=== PATIENT | female | born 1965 | race Caucasian/White ===

== ENCOUNTER 2021-07-14 16:58 | Day surgery (SDC) | payer OTHER ==
[2021-07-04 11:17] VITALS: BMI 35.5
[2021-07-14] MEDS: ACETAMINOPHEN 500 MG TABLET (FP) PO SCH ×2 (14:30→21:02)
[~2021-07-14 16:58] MED LIST: ACETAMINOPHEN 1000 MG/100 ML VIAL IVPB ONE; ACETAMINOPHEN INJECTION 100 ML IVPB ONE; BUPIVACAINE HCL 50 ML ONE; BUPIVACAINE HCL/PF 0.5% (5MG/ML) 10 ML VIAL ONE; BUPIVACAINE LIPOSOME/PF (EXPAREL) 266 MG/20 ML VIAL ONE; BUPIVICAINE 0.25%/MORPH PF/KETOROLAC - 51ML DISP.SYRINGE IA ONE; DEXAMETHASONE SOD PHOSPHATE 4 MG/1 ML VIAL ONE; LACTATED RINGERS SOLUTION 1,000 ML IV SCH; MAG HYDROX/AL HYDROX/SIMETH 30 ML UNIT-DOSE CUP PO PRN; MIDAZOLAM HCL 2 MG/2 ML SINGLE DOSE VIAL ONE; ONDANSETRON 4 MG/2 ML VIAL IVPUSH PRN; ONDANSETRON 4 MG/2 ML VIAL ONE; PROPOFOL 20 ML ONE; SODIUM CHLORIDE 0.9% P/F 10 ML VIAL IJ ONE; TRANEXAMIC ACID 1000 MG/10 ML VIAL ONE; VANCOMYCIN 1,000 MG VIAL (RESTRICTED TO ID ONLY) ONE; ceFAZolin SODIUM 1 GM VIAL ONE; oxyCODONE HCL 5 MG TABLET PO PRN
[2021-07-14] MEDS: metFORMIN HCL 500 MG TABLET (FP) PO SCH (18:46)
[2021-07-14] MEDS: oxyCODONE HCL 5 MG TABLET PO PRN ×2 (19:07→22:09)
[2021-07-14] MEDS ORDERED: DEXTROSE 5%-WATER - 50 ML IVPB ONE (20:46)
[2021-07-14] MEDS ORDERED: ceFAZolin SODIUM 1 GM VIAL ONE (20:46)
[2021-07-14] MEDS: CEFAZOLIN 1 GM in DEXTROSE 5%-WATER - 50 ML IVPB SCH (21:02)
[2021-07-14] MEDS: oxyCODONE HCL 10 MG SUSTAINED ACTING TABLET PO SCH (21:03)
[2021-07-14] MEDS: SENNOSIDES/DOCUSATE COMBO (SENNA PLUS) TABLET (UD) PO SCH (21:03)
[2021-07-14] MEDS: INSULIN SLIDING SCALE (NOVOLOG) 1 VIAL SQ SCH (21:04)
[2021-07-14] MEDS ORDERED: LISINOPRIL 5 MG TABLET PO SCH (22:00)
[2021-07-15] MEDS ORDERED: ceFAZolin SODIUM 1 GM VIAL ONE ×2 (02:08→03:41)
[2021-07-15] MEDS ORDERED: DEXTROSE 5%-WATER - 50 ML IVPB ONE ×2 (02:09→03:41)
[2021-07-15] MEDS: ACETAMINOPHEN 500 MG TABLET (FP) PO SCH ×2 (02:15→10:20)
[2021-07-15] MEDS: oxyCODONE HCL 5 MG TABLET PO PRN (03:43)
[2021-07-15] MEDS: CEFAZOLIN 1 GM in DEXTROSE 5%-WATER - 50 ML IVPB SCH (03:45)
[2021-07-15] MEDS: metFORMIN HCL 500 MG TABLET (FP) PO SCH (07:00)
[2021-07-15] MEDS: INSULIN SLIDING SCALE (NOVOLOG) 1 VIAL SQ SCH ×2 (07:01→11:48)
[2021-07-15 09:02] LABS: HEMATOCRIT 35.6 % (32.4-45.2); HEMOGLOBIN 11.6 GM/dl (10.7-15.3); MCH 30.2 pg (25.7-33.7); MCHC 32.6 g/dl (32.0-36.0); MEAN CELL VOLUME 92.5 fl (80-96); MEAN PLT VOLUME 10.4 fl (7.5-11.1); PLATELET COUNT 140 10^3/uL (134-434); RBC 3.85 M/mm3 (3.60-5.2); RDW 12.3 % (11.6-15.6); WHITE BLOOD COUNT 7.7 K/mm3 (4.0-10.8)
[2021-07-15 09:04] LABS: CALCIUM 8.4 mg/dl (8.5-10); CREATININE 0.4 mg/dl (0.55-1.3)
[2021-07-15] MEDS ORDERED: PANTOPRAZOLE 40 MG TABLET PO SCH (10:00)
[2021-07-15] MEDS ORDERED: ENOXAPARIN NA (PORCINE) 30 MG/0.3 ML DISP.SYRIN SQ SCH (10:00)
[2021-07-15] MEDS ORDERED: CALCIUM (OYSTER SHELL) 500 MG TABLET (FP) PO SCH (10:00)
[2021-07-15 10:20] VITALS: BP 129/64; PULSE 103; TEMP 98
[2021-07-15] MEDS: SENNOSIDES/DOCUSATE COMBO (SENNA PLUS) TABLET (UD) PO SCH (10:22)
[2021-07-15] MEDS: oxyCODONE HCL 10 MG SUSTAINED ACTING TABLET PO SCH (10:22)
== END 2021-07-15 12:35 | disposition home health service (06) ==
LOC: FM/S 16:58 → FASUSAT 16:58 → SUATTDRO 16:58 → FASUSAT 07-15 12:35
PROVIDERS: ATTEND Nurse Practitioner Family
PROC: 8E0YXBZ Computer Assisted Procedure of Lower Extremity (ICD-10-PCS; 2021-07-14)
PROC: 8E0Y0CZ Robotic Assisted Procedure of Lower Extremity, Open Approach (ICD-10-PCS; 2021-07-14)
PROC: 0SRC0J9 Replacement of Right Knee Joint with Synthetic Substitute, Cemented, Open Approach (ICD-10-PCS; principal; 2021-07-14 11:49)
DX: M17.11 Unilateral primary osteoarthritis, right knee (principal); I10 Essential (primary) hypertension; E11.9 Type 2 diabetes mellitus without complications; E78.5 Hyperlipidemia, unspecified; Z79.84 Long term (current) use of oral hypoglycemic drugs
CPT/HCPCS: 20985; 27447; C1776; S2900; 36415; 73560-TC-RT-FY; 80048; 82962; 85027; 88304-TC; 88311-TC; 94760; 97162-GP; J0131